=== PATIENT | male | born 1985 | race Caucasian/White ===

== ENCOUNTER → 2017-01-09 | Outpatient (CLI) | payer OTHER ==
--- NOTE | 2017-01-09 10:48 | NUR ---
Eval 2 Hr/Client presented for an eval as a referral from the courts.
--- NOTE | 2017-01-11 12:14 | CDE ---
ADMIT: 01/09/2017 RM/LOC: [facility] MR#: [id number] [address] [id number] MICHEL CARLOS [address] [place] [id number] Chemical Dependency Evaluation SEX: M AGE: 31 : 1985 A. DEMOGRAPHICS: NAME: Michel Carlos DATE OF : 1985 EVALUATING COUNSELOR: Corby Camacho MS, LM, [facility], [facility] DATE OF EVALUATION: 01/09/2017 B. PRESENTING PROBLEM/CHIEF COMPLAINT: This client was referred here by the court system as he had an attempted to receive stolen property charges. He has not been sentenced yet, but they wanted the evaluation for that. C. MEDICAL HISTORY: This client has no medical issues of concern at this time. D. WORK/SCHOOL/ HISTORY: Company. 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 He said he works 25 hours a week. EDUCATION: This client dropped out of school after the 10th grade and has not been able to get his GED. He said when he was in the [employer], he passed everything but the math and algebra was his stumbling block for him. He has no goals in the area of education now or in the future. : This client has never been in the . E. ALCOHOL/DRUG ASSESSMENT SUMMARY: ALCOHOL: This client first drank alcohol at age 12. He said he drinks once a week, has a couple of beers. His last use of alcohol was 01/07/2017. He said he just had a couple of beers. MARIJUANA: This client first used marijuana at age 12. He said he used it one time a week, usually a joint a week. He has not smoked any marijuana since 2010. COCAINE: No use reported. METHAMPHETAMINE: This client first tried meth at age 20. He said he would smoke 0.25 g once or twice a week, but he has not used any meth since 2010. HALLUCINOGENS: No use reported. HEROIN: No use reported. PRESCRIPTION DRUGS: No abuse reported. OTHER DRUGS (INHALANTS, OVER THE COUNTER, ETC): No abuse reported. NICOTINE: This client first started smoking cigarettes at age 12. He smokes a pack a day and has smoked today. He said he had a lot of negative consequences of his drug and alcohol use but did not list any. ADMIT: 01/09/2017 RM/LOC: [facility] MR#: [id number] [address] [id number] [place] [address] Chemical Dependency Evaluation SEX: M AGE: 31 : 1985 F. LEGAL HISTORY: This client stated that he has a big list of legal charges starting with a DUI at age 20. Prior to that, he had a possession of marijuana at age 17. He has had theft by stealing, driving under suspension, leaving the scene of an accident to name a few of the legal issues that he has struggled with. G. FAMILY/SOCIAL/PEER HISTORY: This client was raised in [place]. He said his family upbringing was normal. His parents did separate, did not know when or why, and denied that it has any effect on him. He said he gets along great with his mom, and his dad is . He has never been . However, he has one son, Ish is 7. He is currently in a relationship and has been for three years. He does keep in contact and pay child support for his child. However, he lost his license due to not paying child support but he is getting that caught up. SEXUAL HISTORY AND TRAUMA: This client stated he is heterosexual and he is comfortable with that orientation. He denied being the victim of sexual or physical abuse. He denied ever inflicting any sexual or physical abuse on others. SOCIAL RELATIONSHIPS: Client stated the majority of his friends are non-users. He has lost a lot of friends due to his drug use. He does tend to spend time with people. He is ashamed of the trouble that he has gotten into while he has been under the influence of alcohol and drugs. RECREATIONAL AND LEISURE ACTIVITIES: This client enjoys are fishing, camping, playing golf and bowling, spending time with his family. He did say that he has drank or done drugs while doing those activities. SPIRITUAL: This client does not believe in God or a higher power and does not know what his purpose and meaning in life is. He does not belong to any particular worship. H. PSYCHIATRIC/BEHAVIORAL HISTORY: This client has never thought of suicide and has never attempted it. He never had any behavioral or other mental health issues in any inpatient or outpatient treatment. I. COLLATERAL INFORMATION: No collateral information was gathered for this client. ADMIT: 01/09/2017 RM/LOC: [facility] MR#: [id number] [address] [place] [id number] [place] [address] Chemical Dependency Evaluation SEX: M AGE: 31 : 1985 THE DRINKER TYPE RATING: Is a measure of how the client perceives their own drinking and/or using. This rating is indicative of how resistant or accepting the person is to the drinking problem. The client chose their rating from the following classifications: ALCOHOL Total Abstainer Light Social (non-problem) Drinker Moderate Social (non-problem) Drinker User Heavy Social (non-problem)Drinker Problem Drinker Alcoholic OTHER DRUG Nonuser Light Social (non-problem) User Moderate Social (non-problem) User Heavy Social (non-problem) User Problem User Addicted/Dependent This client listed himself as an alcoholic and a nonuser of other drugs. However, he has been diagnosed with cannabis and meth addiction in the past. This client listed his strengths as he is good at his job. Weaknesses are women. SUBSTANCE ABUSE SUBTLE SCREENING INVENTORY (SASSI): The SASSI is an assessment tool specifically designed to provide a clearer picture of what lies beneath the facade presented by most patients or clients. Scores on this assessment aid in distinguishing nonabusers from abusers, alcoholics from drug abusers and nondefensive clients from defensive ones. The incorporation of a "denial scale" further enhances the ability to make an accurate recommendation. This client's SASSI scores indicate that he has a high probability of having a moderate to severe substance use disorder. His scores are as follows: Face Valid Alcohol (FVA): 9. Face Valid Other Drugs (FVOD): 12. Symptoms (SYM): 7. Obvious Attributes (OAT): 5. Subtle Attributes (SAT): 5. Defensiveness (DEF): 7. Supplemental Addiction Measure (PATRICIA): 8. Family versus Controls (FAM): 10. Correctional (COR): 8. Random Answering Pattern (RAP): 0. ADMIT: 01/09/2017 RM/LOC: [facility] MR#: [id number] [address] [place] [id number] MICHEL CARLOS [address] [place] [id number] Chemical Dependency Evaluation SEX: M AGE: 31 : 1985 Again, these scores indicate that this client has a high probability of having a substance dependence disorder. We administered the ASI. Please see attached summary sheet. K. CLINICAL IMPRESSION: 1. F10.20, alcohol use disorder, severe. 2. F12.20, marijuana use disorder, severe, sustained full remission. 3. F15.20, meth use disorder, severe, sustained full remission. 4. Z63.72, alcoholism or drug addiction in the family. 5. Z65.0, conviction of civil or criminal proceedings with probation. 6. Z71.42, counseling for family members of alcohol. 7. GAF 40. This client was well dressed for this interview. He appeared to be open and honest. He stated he thinks he should be able to drink alcohol even though he is on probation or will be on probation. He sees nothing wrong with that. L. RECOMMENDATIONS PRESENTED TO CLIENT: This client was told that he would be referred to outpatient counseling to help him look at why he feels he needs to drink to relax. CLIENT/FAMILY RESPONSE: This client stated he was okay with outpatient counseling. [facility] CLINICAL ASSESSMENT CRITERIA: Low/Medium/High Dimension 1 = Intoxication and Withdrawal (i.e. history of withdrawal, level of current use): Low. Dimension 2 = Medical (i.e. , diabetes, medications, chronic conditions): Low. Dimension 3 = Emotional/Behavior Conditions (i.e. psych history, impulsivity, depression, anxiety, trauma history): Low. Dimension 4 = Treatment Acceptance/Resistance (i.e. past history, minimization/blame, acknowledgement of problem, pressure to seek treatment, does not feel they have a problem): Medium. Dimension 5 = Relapse Potential (i.e. inability to abstain, use despite consequences, significant preoccupation, relapse despite outpatient treatment attempts): High. ADMIT: 01/09/2017 RM/LOC: [facility] MR#: [id number] [address] [place] [id number] MICHEL CARLOS [address] [place] [address] Chemical Dependency Evaluation SEX: M AGE: 31 : 1985 Dimension 6 = Recovery/Living Environment (i.e. current users reside in environment, family attitude, lack of consistent adult support in living environment, high exposure to using in social/work environment): High. CRIMINOGENIC RISK FACTORS: Low/Moderate/High Antisocial Attitudes: Medium. Antisocial Peers: Medium. Self Control Skills: Low. Family Dysfunction: Medium. Past Criminality: Medium. Thank you for the opportunity to work with this client. Corby Camacho MS,KARUNA,ERMIAS, MARCEL/ [employer] JOB #: [id number] CC:
== END | disposition home or self-care (01) ==
LOC: ADTC.GI 08:16
DX: F10.20 Alcohol dependence, uncomplicated (principal); F12.21 Cannabis dependence, in remission; F15.21 Other stimulant dependence, in remission; Z63.72 Alcoholism and drug addiction in family; Z65.0 Conviction in civil and criminal proceedings without imprisonment; Z71.42 Counseling for family member of alcoholic